=== PATIENT | male | born 1995 | race Caucasian/White ===

== ENCOUNTER → 2019-08-22 11:38 | Outpatient (BNVA) | payer MEDICAID, SELFPAY | PROVIDERS: Family Provider Family Medicine; PCP Family Medicine; Referring Provider Nurse Practitioner Family; Visit Provider Specialist | DX: M79.602 Pain in left arm (principal); R20.0 Anesthesia of skin; F17.210 Nicotine dependence, cigarettes, uncomplicated | CPT/HCPCS: 99203; 99213 ==

== ENCOUNTER 2019-08-22 15:12 | Outpatient (CLI) | payer MEDICAID, SELFPAY ==
--- NOTE | 2019-08-22 15:19 | XRR_ITS ---
PROCEDURE INFORMATION: Exam: XR Cervical Spine, 2 or 3 Views Exam date and time: 08/22/2019 3:40 PM Age: 24 years old Clinical indication: Patient HX: Right arm pain, patient fell out of tree a year ago, pain ever since TECHNIQUE: Imaging protocol: XR of the cervical spine, 2 or 3 views. COMPARISON: CT Cervical Spine wo* [id number] 09/20/2018 7:30 PM FINDINGS: Vertebrae: Normal. No acute fracture. Normal alignment. Soft tissues: Normal. XR/XR cervical spine 3V* [id number] IMPRESSION: Unremarkable radiograph.
--- NOTE | 2019-08-24 15:46 | DCPLANNER ---
Patient attended appointment scheduled for 08.22.[address] Carvalho.
== END 2019-08-22 15:13 | disposition home or self-care (01) ==
LOC: RAD 15:17
PROVIDERS: Family Provider Family Medicine; PCP Family Medicine; Visit Provider Specialist
DX: M79.601 Pain in right arm (principal)
CPT/HCPCS: 72040

== ENCOUNTER → 2019-08-23 10:35 | Outpatient (BNVA) | payer MEDICAID, SELFPAY | PROVIDERS: Family Provider Family Medicine; PCP Family Medicine; Visit Provider Specialist | DX: M79.602 Pain in left arm (principal); R20.0 Anesthesia of skin | CPT/HCPCS: 95910 ==

== ENCOUNTER 2019-09-12 17:58 | Emergency (ER) | payer MEDICAID, SELFPAY ==
[2019-09-12 18:04] VITALS: BP 163/103; PULSE 89; RESP 18; TEMP 36.6; O2SAT 98; BMI 29.8
--- NOTE | 2019-09-12 18:15 | ED_ITS ---
HPI - Skin/Abscess/Foreign Bdy General: Chief complaint: Skin/Abscess/Foreign Body Stated complaint: right ear pain Time Seen by Provider: 09/12/19 18:13 History of Present Illness: HPI narrative: Patient is a 24-year-old male comes to the ED with an abscess. The abscess is located anteriorly to the right ear. He states that first showed up about a year ago but it was small. Patient and son last Thursday it started growing and getting bigger, so he attempted to richie it himself on Thursday. He stated that some pus and blood came out, but then afterwards he is having more pain and more tender. Denies any fever, nausea, vomiting. Patient states he had his last tetanus about a year ago. He denies any past history of MRSA or staph infection. Associated symptoms: Deny chills, fever(s), nausea or vomiting Review of Systems Const: Denies: fever, chills or fatigue Eyes: Denies: change in vision or eye discomfort ENMT: Reports: facial/sinus pain (near lesion around right mandaen); Denies: throat pain, painful swallowing, nasal discharge or nasal congestion Card: Denies: chest pain, palpitations, edema, swelling of feet/ankles, shortness of breath on exertion or shortness of breath when lying down Resp: Denies: shortness of breath, productive cough or non-productive cough GI: Denies: abdominal pain, nausea, vomiting, diarrhea, constipation or blood in stool : Denies: flank pain, difficulty urinating, painful urination or blood in urine Musc: Denies: neck pain, back pain or extremity swelling Skin/Breast: Reports: new lesion (abscess near right ear. anterior to tragus); Denies: rash Neuro: Denies: headache, numbness in extremities or weakness in extremities PFSH ED PFSH: Family History Other Diabetes Hypertension Denies family history of CAD (coronary artery disease) Cancer Stroke Social History Smoking and tobacco status: current every day smoker cigarettes Packs smoked per day: 1.5 Alcohol intake: former Year of sobriety/quit date alcohol: 2019 Physical Exam Const: COMMON NORMALS: oriented x3 HENMT: COMMON NORMALS: normocephalic HEAD & SCALP: normocephalic MOUTH: oral and palatal mucosa normal THROAT: posterior oropharynx normal and uvula midline Neck/C-Spine: COMMON NORMALS: supple GENERAL: Yes normal visual inspection Resp: COMMON NORMALS: normal respiratory effort, no retractions, no use of accessory muscles and clear to auscultation bilaterally AUSCULTATION: clear to auscultation bilaterally Cardio: COMMON NORMALS: regular rate, regular rhythm, S1 normal heart sound, S2 normal heart sound, no gallops, no clicks, no murmurs and peripheral pulses 2+ throughout RATE: regular rate RHYTHM: regular rhythm HEART SOUNDS: S1 normal and S2 normal PERIPHERAL PULSES: pulses 2+ throughout GI: COMMON NORMALS: normal to inspection, nondistended, normoactive bowel sounds, soft to palpation, non-tender and no masses PALPATION: Yes soft : COMMON NORMALS: Yes no CVA tenderness BLADDER/KIDNEY EXAM: Yes no CVA tenderness Back/Pelvis: COMMON NORMALS: no CVA tenderness Neuro: COMMON NORMALS: oriented x3 and moves all extremities Skin: LESIONS: lesion noted (single erythemic papule that is tender and anterior to tragus of R ear) Procedures Abscess I/D Site: face (Anterior to tragus of R ear. 1cm in daimeter) Side (if applicable): right Local Anesthetic: lidocaine 1% and with epi Amount of anesthesia used (mL): 10 Technique: incised with #11 blade Amount of fluid expressed (mL): 2 (purulent drainage along with blood. Foul smelling. Culture sent to lab) Irrigation: No Packing used?: none Course Vital Signs: Vital signs: Vital Signs Temperature 98.8 F 09/12/19 19:50 Pulse Rate 88 09/12/19 19:50 Respiratory Rate 18 09/12/19 19:50 Blood Pressure 142/90 09/12/19 19:50 Pulse Oximetry 98 09/12/19 19:50 Discharge Plan Discharge Patient Disposition: Home, Self-Care Clinical Impression: Abscess of skin or subcutaneous tissue Qualifiers: Site of cutaneous abscess: face Qualified Code(s): L02.01 - Cutaneous abscess of face Condition: Stable Prescriptions: New Bactrim DS 800-160 mg tablet 1 tab PO BID 7 Days Qty: 14 RF: 0 No Action No Known Home Medications RF: 0 Discharge Orders: Discharge Order (Routine); Ordered 09/12/19 Ordered By: Arturo Iglesias Referrals: Bee Gomez DO [Family Provider] - Jovanni Castro MD [Primary Care Provider] - Discharge Diet: Regular Discharge Activity: Resume usual activity Patient Instructions: Abscess Incision and Drainage (ED) Activity Restrictions/Additional Instructions: Follow-up with PCP in 7 days for reevaluation. Take full course of antibiotics as prescribed. Drink plenty of fluids and stay hydrated. Take Tylenol or ibuprofen for fever or pain. Watch for signs of infection such as fever, swelling, redness, warmth and drainage. 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
[2019-09-12 18:16] VITALS: BP 153/88; PULSE 102; RESP 18; TEMP 37.3; O2SAT 97
[2019-09-12] MEDS: HYDROcodone-acetaminophen 7.5-325 mg Tablet 1 TAB PO (18:30)
[2019-09-12 19:50] VITALS: BP 142/90; PULSE 88; RESP 18; TEMP 37.1; O2SAT 98
== END 2019-09-12 19:51 | disposition home or self-care (01) ==
PROVIDERS: Emergency Provider Physician Assistant; Family Provider Family Medicine; PCP Family Medicine
DX: L02.01 Cutaneous abscess of face (principal); F17.210 Nicotine dependence, cigarettes, uncomplicated
CPT/HCPCS: 10060; 87070; 87075; 87077; 87186; 87205; 96372; 99282; 99283; J2001

== ENCOUNTER 2019-09-20 12:29 | Emergency (ER) | payer MEDICAID, SELFPAY ==
[2019-09-20 13:18] VITALS: BP 129/94; PULSE 71; RESP 16; TEMP 36.7; O2SAT 100; BMI 29.9
--- NOTE | 2019-09-20 14:07 | PC.NURSE ---
Patient reports that he has previous back injuries. Patient states that about 3 days ago he began to get the back pain. Patient states he does not remember any new injuries. Patient reports the pain is on his right lower side. Patient states the pain is just as bad as the day he injured it in the past.
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
[2019-09-20] MEDS: ketorolac 30 mg/mL INJ IM (14:35)
[2019-09-20 14:42] VITALS: BP 131/80; PULSE 88; RESP 16; TEMP 37; O2SAT 100
== END 2019-09-20 14:43 | disposition home or self-care (01) ==
PROVIDERS: Emergency Provider Nurse Practitioner Family; Family Provider Family Medicine; PCP Family Medicine
DX: M54.5 Low back pain (principal); F17.210 Nicotine dependence, cigarettes, uncomplicated
CPT/HCPCS: 96372; 99281; 99282; J1885

== ENCOUNTER → 2020-06-05 10:46 | Outpatient (BNVA) | payer MEDICAID, SELFPAY | PROVIDERS: PCP Family Medicine; Visit Provider Nurse Practitioner Family | DX: Z20.828 Contact with and (suspected) exposure to other viral communicable diseases (principal); J06.9 Acute upper respiratory infection, unspecified | CPT/HCPCS: 87635 ==

== ENCOUNTER 2020-07-23 02:17 | Emergency (ER) | payer MEDICAID, SELFPAY ==
[2020-07-23 02:24] VITALS: BP 172/87; PULSE 100; RESP 18; TEMP 36.1; O2SAT 95; BMI 26.9
--- NOTE | 2020-07-23 02:29 | XRR_ITS ---
PROCEDURE INFORMATION: Exam: XR Chest, 1 View Exam date and time: 07/23/2020 2:38 AM Age: 25 years old Clinical indication: Injury or trauma; Other: Tree fell on back; Blunt trauma (contusions or hematomas); Injury date: 07/22/20 TECHNIQUE: Imaging protocol: XR of the chest Views: 1 view. COMPARISON: CT Chest/Abdomen/Pelvis w IV* 09/20/2018 7:40 PM FINDINGS: Lungs: Hyperinflation, without acute airspace disease. Pleural space: No pleural effusion. Heart/Mediastinum: Normal configuration of the heart. Bones/joints: Unremarkable. XR/XR chest 1V portable [id number] IMPRESSION: Hyperinflation, without acute airspace or pleural disease.
--- NOTE | 2020-07-23 02:30 | CTR_ITS ---
PROCEDURE INFORMATION: Exam: CT Abdomen And Pelvis With Contrast Exam date and time: 07/23/2020 2:42 AM Age: 25 years old Clinical indication: Injury or trauma; Other: Tree fell on right side back; Blunt; Generalized; Additional info: Abdominal pain TECHNIQUE: Imaging protocol: Computed tomography of the abdomen and pelvis with intravenous contrast. Radiation optimization: All CT scans at this facility use at least one of these dose optimization techniques: automated exposure control; mA and/or kV adjustment per patient size (includes targeted exams where dose is matched to clinical indication); or iterative reconstruction. Contrast material: OMNI 300; Contrast volume: 95 ml; Contrast route: INTRAVENOUS (IV); COMPARISON: CT Chest/Abdomen/Pelvis w IV* 09/20/2018 7:40 PM RADIATION DOSE METRICS: Total DLP (mGy-cm): 1044.88 FINDINGS: Liver: Normal. No mass. Gallbladder and bile ducts: Normal. No calcified stones. No ductal dilation. Pancreas: Normal. No ductal dilation. Spleen: Normal. No splenomegaly. Adrenal glands: Normal. No mass. Kidneys and ureters: Normal. No hydronephrosis. Stomach and bowel: Unremarkable. No obstruction. No mucosal thickening. Appendix: No evidence of appendicitis. Intraperitoneal space: Unremarkable. No free air. No significant fluid collection. Vasculature: Unremarkable. No abdominal aortic aneurysm. Lymph nodes: Unremarkable. No enlarged lymph nodes. Urinary bladder: Unremarkable as visualized. Reproductive: Unremarkable as visualized. Bones/joints: Unremarkable. No acute fracture. Soft tissues: Unremarkable. CT/CT abdomen pelvis w con* [id number] IMPRESSION: No acute findings. Radiation Dose CTDIVOL = (mGy): DLP = 1044.88 (mGy-cm)
--- NOTE | 2020-07-23 02:30 | CTR_ITS ---
PROCEDURE INFORMATION: Exam: CT Head Without Contrast Exam date and time: 07/23/2020 2:42 AM Age: 25 years old Clinical indication: Pain; Headache not specified; Additional info: Trauma/injury TECHNIQUE: Imaging protocol: Computed tomography of the head without contrast. Radiation optimization: All CT scans at this facility use at least one of these dose optimization techniques: automated exposure control; mA and/or kV adjustment per patient size (includes targeted exams where dose is matched to clinical indication); or iterative reconstruction. COMPARISON: No relevant prior studies available. RADIATION DOSE METRICS: Total DLP (mGy-cm): 1836.61 FINDINGS: Brain: Normal. No hemorrhage. Unremarkable white matter. No mass effect. Cerebral ventricles: No ventriculomegaly. Bones/joints: Unremarkable. No acute fracture. Paranasal sinuses: Visualized sinuses are unremarkable. No fluid levels. Mastoid air cells: Visualized mastoid air cells are well aerated. Soft tissues: Unremarkable. CT/CT head wo con* [id number] IMPRESSION: No acute intracranial abnormality. Radiation Dose CTDIVOL = (mGy): DLP = 1836.61 (mGy-cm)
--- NOTE | 2020-07-23 02:37 | W.ED.BACK ---
HPI - Back Pain/Injury General: Chief Complaint: Back Pain/Injury Stated Complaint: tree fell on back yesterday/still in pain Time Seen by Provider: 07/23/20 02:24 Source: patient Mode of arrival: ambulatory Limitations: no limitations History of Present Illness: HPI Narrative: Dung is a nice 25-year-old male who comes in complaining of back pain and head pain. He states he was cutting down a tree when it fell coming down on him hitting him in the head and then glancing off his right flank and lower back. The injury happened over 12 hours ago but the patient states he had continued pain worsening since then. He has nausea but is not vomited. He denies any blurry vision or double vision. He denies any hematuria. Patient states he just sore and he is concerned that he may have hurt his back again. He is unaware of any exacerbating or alleviating factors. Of all of his symptoms he states his back pain is the worst. Associated symptoms: Reports abdominal pain; Deny chills, difficulty walking, dysuria, fatigue, fever(s), hematuria, nausea, syncope, urinary urgency or vomiting Review of Systems Const: Denies: fever(s), chills, body aches, fatigue, malaise or diaphoresis Eyes: Denies: change in vision, blurry vision, photophobia, eye discomfort, eye discharge, eye redness or yellow eyes ENMT: Denies: throat pain, odynophagia, hoarseness, swelling of lips/tongue, ear or mastoid pain, ear discharge, change in hearing or nasal discharge Card: Denies: chest pain, palpitations, irregular heart rhythm, edema, lightheadedness, syncope, pre-syncope, dyspnea on exertion or orthopnea Resp: Denies: dyspnea, productive cough, non-productive cough, wheezing, hemoptysis or chest congestion GI: Reports: abdominal pain; Denies: nausea, vomiting, hematemesis, coffee ground emesis, heartburn, diarrhea, constipation, GI cramping, hematochezia or melena : Reports: flank pain; Denies: dysuria, urinary frequency, urinary urgency or hematuria Musc: Denies: neck pain, extremity pain, extremity swelling, joint pain, joint swelling, joint redness, joint warmth or joint stiffness Skin/Breast: Denies: rash, pruritus, erythema, skin pain or skin tenderness Neuro: Reports: headache(s); Denies: numbness in extremities, weakness in extremities, sensory changes, lack of coordination, difficulty walking, dizziness, vertigo, confusion, Slurred speech present or seizure-like activity Moe/Lymph: Denies: easy bruising, easy bleeding, petechiae, purpura or enlarged lymph nodes All/Imm: Denies: urticaria, throat swelling, tongue swelling, facial swelling or acute wheezing PFSH ED PFSH: Medical History Chronic low back pain with right-sided sciatica History of back injury (~09/2017) L2 vertebral fracture Family History Other Diabetes Hypertension Denies family history of CAD (coronary artery disease) Cancer Stroke Social History Smoking and tobacco status: current every day smoker cigarettes Packs smoked per day: 0.5 Alcohol intake: current Alcohol intake frequency: few times a week Alcohol type: beer and hard liquor Physical Exam Const: COMMON NORMALS: no acute distress, patient oriented x3, no limitations and alert GENERAL APPEARANCE: cooperative HENMT: COMMON NORMALS: normocephalic, atraumatic, external ears normal, EAC's normal and Normal external nose present HEAD & SCALP: normal to inspection, normocephalic and atraumatic FACE & SINUS: normal facial exam and face symmetric NOSE: Normal external nose present and Normal nares present EXTERNAL EAR: Yes external ears normal EXTERNAL AUDITORY CANAL: EAC's normal MOUTH: Normal oral and palatal mucosa present, lip normal and tongue normal Eye: COMMON NORMALS: Equal, round and reactive pupils present and conjunctivae normal GENERAL EYE: appearance normal, both eyes and all related structures ALIGNMENT: Yes alignment normal PERIORBITAL: periorbital findings normal EYELID: eyelids normal CONJUNCTIVA: Yes conjunctivae normal SCLERA: sclerae normal PUPIL: Yes Equal, round and reactive pupils present Neck/C-Spine: COMMON NORMALS: full ROM, no lymphadenopathy, supple, no meningeal signs and no JVD GENERAL: Yes normal visual inspection and Yes trachea midline Chest: COMMONS NORMALS: normal inspection of the chest and normal palpation of entire chest wall Resp: COMMON NORMALS: normal respiratory effort, No retractions, No use of accessory muscles and clear to auscultation bilaterally EFFORT & INSPECTION: Yes able to speak in complete sentences and Yes symmetric chest movement AUSCULTATION: clear to auscultation bilaterally, no crackles, no rales, no rhonchi and no wheezes Cardio: COMMON NORMALS: no JVD, regular rate, regular rhythm, S1 normal heart sound present and S2 normal heart sound present RATE: regular rate RHYTHM: regular rhythm HEART SOUNDS: S1 normal heart sound present, S2 normal heart sound present, no click, no gallops, no murmurs and no rubs GI: COMMON NORMALS: Soft to palpation and No hepatosplenomegaly present PALPATION: Yes Soft to palpation, No Tenderness to palpation present (GI), No Guarding due to palpation present (GI), No Rigid due to palpation, Yes No hepatosplenomegaly present, No Hernia present, No Palpable mass present and No Pulsatile mass present : COMMON NORMALS: Yes no CVA tenderness BLADDER/KIDNEY EXAM: Yes no CVA tenderness Back/Pelvis: COMMON NORMALS: no CVA tenderness, thoracic and lumbar spine normal to inspection, no thoracic nor lumbar tenderness and thoraco-lumbar ROM normal Extremity: COMMON NORMALS: normal to inspection, full ROM, capillary refill normal, no joint enlargement, no clubbing, cyanosis or edema and no calf tenderness Neuro: COMMON NORMALS: patient oriented x3, CN's II-XII intact bilaterally, moves all extremities, no focal motor deficits and no sensory deficits noted SENSORIUM/ORIENTATION: Yes alert MENINGEAL SIGNS: Yes no meningeal signs SPEECH: speech normal Psych: COMMON NORMALS: mental status grossly normal, Normal thought process present, cooperative, normal affect, speech normal and activity/motor behavior normal SPEECH: Yes normal speech THOUGHT PROCESS: Normal thought process present Skin: COMMON NORMALS: no rashes or lesions noted, turgor normal, no jaundice, no petechiae and no mottling GENERAL SKIN EXAM: no rashes or lesions noted and turgor normal Course Vital Signs: Vital signs: Vital Signs Temperature 97.0 F L 07/23/20 02:24 Pulse Rate 100 07/23/20 02:24 Respiratory Rate 18 07/23/20 02:24 Blood Pressure 172/87 07/23/20 02:24 Pulse Oximetry 95 07/23/20 02:24 MDM - Back Pain/Injury MDM Narrative: Medical decision making narrative: [id number] -the patient is relieved to hear that his findings are normal. He is feeling better with the fluids has been given here. He is ready for discharge. He denies any other injuries or complaints. He agrees to return should his symptoms change or worsen but at this time he would like to be discharged. Lab Data: Attestation: I reviewed the patient's lab results. Labs: Lab Results 07/23/20 07/23/20 Range/Units 03:57 03:57 WBC 7.2 (4.0-10.0) 10^3/ uL RBC 4.84 (4.1-5.3) 10^6/u L Hgb 14.9 (11.7-16.6) g/dL Hct 44.7 (42.0-52.0) % MCV 92.4 (80-94) fL MCH 30.8 (28.0-34.0) pg MCHC 33.3 (30.0-36.0) g/dL RDW 12.0 L (12.1-15.1) % Plt Count 210 (130-400) 10^3/c mm MPV 9.7 (7.4-10.4) fL Neut % (Auto) 73.3 % Lymph % (Auto) 17.6 % Sebastian % (Auto) 7.6 % Eos % (Auto) 0.6 % Baso % (Auto) 0.6 % Neut # (Auto) 5.29 (1.8-7.7) 10^3/u L Lymph # (Auto) 1.3 (0.8-4.8) 10^3/u L Sebastian # (Auto) 0.6 (0.2-0.9) 10^3/u L Eos # (Auto) 0.0 (0.0-0.8) 10^3/u L Baso # (Auto) 0.0 (0.0-0.1) 10^3/u L Nucleated RBC % (a uto) 0 % Nucleated RBCs # 0.0 /100WBC Sodium 136 (136-145) mmol/L Potassium 3.7 (3.5-5.1) mmol/L Chloride 98 (98-107) mmol/L Carbon Dioxide 27 (22-29) mmol/L Anion Gap 14.7 (5-19) BUN 5 L (6-20) mg/dL Creatinine 0.7 (0.7-1.2) mg/dL GFR Calculation 135.3 H (90-130) mL/min Glucose 93 (65-115) mg/dL Calculated Osmolal ity 279 L (285-295) mOsm/k g Calcium 9.2 (8.5-10.5) mg/dL Total Bilirubin 1.8 H (0.15-1.2) mg/dL AST 29 (0-40) U/L ALT 26 (0-41) U/L Alkaline Phosphata se 66 (40-130) IU/L Total Protein 6.4 L (6.6-8.7) g/dL Albumin 4.1 (3.5-5.2) g/dL Globulin 2.3 (1.3-4.6) g/dL Imaging Data^: CXR: Attestation: I personally reviewed and interpreted this imaging study as follows: My impression: No acute cardiopulmonary findings. No acute traumatic findings. CT Head: Radiologist's impression: [address] [address] [address] Scan Report Signed Patient: Dung Nascimento Unit #: [id number] : 1995 Age/Sex: 25 / M ADM Date: 07/23/20 Loc: ER Room/Bed: Attending Dr: Ordering Provider/Ordering MD: Carrol Kirk DO Date of Service: 07/23/20 Procedure(s): CT head wo con* [id number] Accession Number(s): [id number] Report Number: [id number] PROCEDURE INFORMATION: Exam: CT Head Without Contrast Exam date and time: 07/23/2020 2:42 AM Age: 25 years old Clinical indication: Pain; Headache not specified; Additional info: Trauma/injury TECHNIQUE: Imaging protocol: Computed tomography of the head without contrast. Radiation optimization: All CT scans at this facility use at least one of these dose optimization techniques: automated exposure control; mA and/or kV adjustment per patient size (includes targeted exams where dose is matched to clinical indication); or iterative reconstruction. COMPARISON: No relevant prior studies available. RADIATION DOSE METRICS: Total DLP (mGy-cm): 1836.61 FINDINGS: Brain: Normal. No hemorrhage. Unremarkable white matter. No mass effect. Cerebral ventricles: No ventriculomegaly. Bones/joints: Unremarkable. No acute fracture. Paranasal sinuses: Visualized sinuses are unremarkable. No fluid levels. Mastoid air cells: Visualized mastoid air cells are well aerated. Soft tissues: Unremarkable. CT/CT head wo con* [id number] IMPRESSION: No acute intracranial abnormality. Radiation Dose CTDIVOL = (mGy): DLP = 1836.61 (mGy-cm) Dictated By: Gabriella Thurston Signed By: Gabriella Thurston Signed Date/Time: 07/23/20305 DD/ 3 CT Abd/Pel: Radiologist's impression: [facility] [address] [address] Scan Report Signed Patient: Dung Nascimento Unit #: [id number] : 1995 Age/Sex: 25 / M ADM Date: 07/23/20 Loc: ER Room/Bed: Attending Dr: Ordering Provider/Ordering MD: Carrol Kirk DO Date of Service: 07/23/20 Procedure(s): CT abdomen pelvis w con* [id number] Accession Number(s): [id number] Report Number: [id number] PROCEDURE INFORMATION: Exam: CT Abdomen And Pelvis With Contrast Exam date and time: 07/23/2020 2:42 AM Age: 25 years old Clinical indication: Injury or trauma; Other: Tree fell on right side back; Blunt; Generalized; Additional info: Abdominal pain TECHNIQUE: Imaging protocol: Computed tomography of the abdomen and pelvis with intravenous contrast. Radiation optimization: All CT scans at this facility use at least one of these dose optimization techniques: automated exposure control; mA and/or kV adjustment per patient size (includes targeted exams where dose is matched to clinical indication); or iterative reconstruction. Contrast material: OMNI 300; Contrast volume: 95 ml; Contrast route: INTRAVENOUS (IV); COMPARISON: CT Chest/Abdomen/Pelvis w IV* 09/20/2018 7:40 PM RADIATION DOSE METRICS: Total DLP (mGy-cm): 1044.88 FINDINGS: Liver: Normal. No mass. Gallbladder and bile ducts: Normal. No calcified stones. No ductal dilation. Pancreas: Normal. No ductal dilation. Spleen: Normal. No splenomegaly. Adrenal glands: Normal. No mass. Kidneys and ureters: Normal. No hydronephrosis. Stomach and bowel: Unremarkable. No obstruction. No mucosal thickening. Appendix: No evidence of appendicitis. Intraperitoneal space: Unremarkable. No free air. No significant fluid collection. Vasculature: Unremarkable. No abdominal aortic aneurysm. Lymph nodes: Unremarkable. No enlarged lymph nodes. Urinary bladder: Unremarkable as visualized. Reproductive: Unremarkable as visualized. Bones/joints: Unremarkable. No acute fracture. Soft tissues: Unremarkable. CT/CT abdomen pelvis w con* [id number] IMPRESSION: No acute findings. Radiation Dose CTDIVOL = (mGy): DLP = 1044.88 (mGy-cm) Dictated By: Gabriella Thurston Signed By: Gabriella Thurston Signed Date/Time: 07/23/20309 DD/ 7 Discharge Plan Discharge Patient Disposition: Home Clinical Impression: Concussion Qualifiers: Encounter type: initial encounter Loss of consciousness presence/duration: without LOC Qualified Code(s): S06.0X0A - Concussion without loss of consciousness, initial encounter Contusion Qualifiers: Encounter type: initial encounter Contusion area: abdominal wall Qualified Code(s): S30.1XXA - Contusion of abdominal wall, initial encounter Condition: Stable Prescriptions: No Action naproxen [Naprosyn] 500 mg tablet 500 mg PO BID 15 Days Qty: 30 RF: 3 cyclobenzaprine 10 mg tablet 10 mg PO TID PRN (Reason: muscle spasm) Qty: 30 RF: 1 Discharge Orders: Discharge ED (Routine); Ordered 07/23/20 Ordered By: Carrol Kirk Referrals: Jovanni Castro MD [Primary Care Provider] - Discharge Diet: Advance as tolerated Discharge Activity: Increase activity as tolerated Patient Instructions: Concussion (ED), Contusion in Adults (ED) Activity Restrictions/Additional Instructions: Please return to the ER immediately for any of the signs or symptoms listed on your discharge instruction sheets, worsening/changing of your symptoms, you are not getting better as quickly as expected, or for ANY other cause or concerns. Coding Level of Care Code ED [employer] Person for Chg Fwd Exam Comprehensive
[2020-07-23] MEDS: iohexol 300 mg/mL 100 mL Btl IV (02:58)
[2020-07-23 04:00] LABS: Basophils % 0.6 %; Eosinophils % 0.6 %; Hematocrit 44.7 % (42.0-52.0); Hemoglobin 14.9 g/dL (11.7-16.6); Lymphocytes # 1.3 10^3/uL (0.8-4.8); Lymphocytes % 17.6 %; Mean Corpuscular HGB Conc 33.3 g/dL (30.0-36.0); Mean Corpuscular Hemoglobin 30.8 pg (28.0-34.0); Mean Corpuscular Volume 92.4 fL (80-94); Mean Platelet Volume 9.7 fL (7.4-10.4); Monocytes # 0.6 10^3/uL (0.2-0.9); Monocytes % 7.6 %; Neutrophils # 5.29 10^3/uL (1.8-7.7); Neutrophils % 73.3 %; Nucleated Red Blood Cells % 0 %; Platelet Count 210 10^3/cmm (130-400); Red Blood Count 4.84 10^6/uL (4.1-5.3); White Blood Count 7.2 10^3/uL (4.0-10.0)
[2020-07-23 04:18] LABS: Alanine Aminotransferase 26 U/L (0-41); Albumin Level 4.1 g/dL (3.5-5.2); Alkaline Phosphatase 66 IU/L (40-130); Anion Gap 14.7 (5-19); Aspartate Amino Transferase 29 U/L (0-40); Blood Urea Nitrogen 5 mg/dL (6-20); Calcium 9.2 mg/dL (8.5-10.5); Carbon Dioxide 27 mmol/L (22-29); Chloride 98 mmol/L (98-107); Globulin 2.3 g/dL (1.3-4.6); Glomerular Filtration Rate 135.3 mL/min (90-130); Glucose 93 mg/dL (65-115); Osmolality Calculated 279 mOsm/kg (285-295); Potassium 3.7 mmol/L (3.5-5.1); Sodium 136 mmol/L (136-145); Total Bilirubin 1.8 mg/dL (0.15-1.2); Total Protein 6.4 g/dL (6.6-8.7)
[2020-07-23 04:53] VITALS: BP 139/82; PULSE 72; RESP 16; O2SAT 97
== END 2020-07-23 04:54 | disposition home or self-care (01) ==
PROVIDERS: Emergency Provider Emergency Medicine; PCP Family Medicine
DX: S06.0X0A Concussion without loss of consciousness, initial encounter (principal); S30.1XXA Contusion of abdominal wall, initial encounter; F17.210 Nicotine dependence, cigarettes, uncomplicated; W20.8XXA Other cause of strike by thrown, projected or falling object, initial encounter
CPT/HCPCS: 12345; 70450; 71045; 74177; 80053; 85025; 99282; 99283; Q9967